=== PATIENT | male | born 1960 | race Caucasian/White ===

== ENCOUNTER → 2017-12-23 09:50 | Outpatient (CLI) | payer OTHER, SELFPAY ==
--- NOTE | 2017-12-23 | DI.RAD.S_ITS ---
PROCEDURE: FL KNEE INJECTION MR/CT RT INDICATIONS: RIGHT KNEE PAIN TECHNIQUE: The indications, alternatives, benefits, risks, and complications of the procedure were explained to the patient. Written informed consent was obtained and placed in the chart. The knee was examined fluoroscopically, and a site chosen for knee joint injection. The skin was prepped and draped in a sterile fashion, and 1% Lidocaine infiltrated from the skin down to the articular surface. A hypodermic needle was then introduced into the joint and iodinated contrast media was instilled to confirm the intra-articular needle tip placement. This was followed by approximately 50 mL Isovue contrast agent. The needle was removed and a bandage was applied. An Julián wrap was then applied around the knee joint to keep the contrast from collecting in the suprapatellar recess. The patient experienced no complications throughout the procedure and left the fluoroscopic suite in no apparent distress. FINDINGS: Single fluoroscopic spot image demonstrates intra-articular location to injected iodinated contrast. IMPRESSION: Successful fluoroscopically guided administration of Isovue contrast solution into the knee joint for CT arthrogram. Dictated by: Jenny Minor M.D. on 12/23/2017 at 15:49 Approved by: Jenny Minor M.D. on 12/23/2017 at 15:51
--- NOTE | 2017-12-23 | DI.CT.S_ITS ---
PROCEDURE: CT LE RT W CON INDICATIONS: RIGHT KNEE PAIN TECHNIQUE: After the intra-articular administration of 10 mL of contrast, 1-1.5 mm axial sections acquired through the knee, with 0.75 mm coronal and sagittal reformats. COMPARISON: None. FINDINGS: Image quality: Excellent. Cartilage: Articulating cartilages in the lateral femoral tibial compartment and patellofemoral compartment are grossly intact Menisci: Lateral menisci shows normal contours and morphology, without abnormal internal contrast uptake. Meniscal root ligaments appear intact. Ligaments: Anterior and posterior cruciate ligaments appear grossly intact. Medial and lateral collateral ligaments appear intact as well. Bones: Patient is status post medial femoral tibial compartment arthroplasty. No gross hardware loosening or failure is seen. There is no acute fracture or dislocation. Joint space: No Carrion's cyst. No intra-articular bodies. IMPRESSION: 1. Prior medial femoral tibial compartment arthroplasty with anatomic right knee alignment. No gross hardware complication. No fracture or dislocation. 2. Mild lateral femoral tibial compartment joint space narrowing. Articulating cartilages are grossly intact. 3. Cruciate ligaments are intact. No gross focal lateral meniscal tear. 4. No evidence of intra-articular loose body. Dictated by: Kings Hardy M.D. on 12/23/2017 at 15:50 Approved by: Kings Hardy M.D. on 12/23/2017 at 15:55
--- NOTE | 2017-12-23 | DI.NM.S_ITS ---
PROCEDURE: NM BONE 3 PHASE RADIOPHARMACEUTICAL: 21.0 mCi Tc-99m MDP IV. INDICATIONS: RIGHT KNEE MENISCUS DERANGEMENT TECHNIQUE: Multiple bone scintigrams were obtained after intravenous injection of Tc-99m MDP, including flow, blood pool, and delayed images centered to the region of interest. COMPARISON: [facility], CR, XR KNEE RT 3V, 08/03/2017, 9:51. [facility], CT, CT LE RT W CON, 12/23/2017, 14:25. FINDINGS: A triple phase bone scan was obtained including flow, blood pool and delayed images centered at the knees. The flow and blood pool images demonstrate symmetrical vascularity to the knees. Delayed images demonstrate photopenia in the medial compartment of the right knee consist with a right knee medial hemiarthroplasty. There is a linear uptake project to the right knee joint centrally. Foci of increased activity around the left knee are consistent with degenerative joint disease. IMPRESSION: 1. Right knee medial hemiarthroplasty. 2. There is a linear uptake project to the right knee joint centrally, most likely degenerative in nature. The comparison CT showed post surgical changes related to right knee medial hemiarthroplasty. Metallic artifacts partially obscure the region of interest. 3. Degenerative joint disease in left knee. Dictated by: Jenny Minor M.D. on 12/23/2017 at 16:22 Transcribed by: AARON on 12/25/2017 at 22:14 Approved by: Jenny Minor M.D. on 12/26/2017 at 9:20
== END ==
PROVIDERS: PCP Family Medicine; Visit Provider Physical Medicine & Rehabilitation
DX: M23.306 Other meniscus derangements, unspecified meniscus, right knee (principal); M25.561 Pain in right knee; M17.12 Unilateral primary osteoarthritis, left knee; Z96.651 Presence of right artificial knee joint
CPT/HCPCS: 20610; 73701; 77002; 78315; A9503